=== PATIENT | female | born 1985 | race African-American/Black ===

== ENCOUNTER 2018-07-22 13:02 | Inpatient (IN) ==
[2018-07-22] MEDS ORDERED: Acetaminophen 325 MG Tablet PO PRN (16:52)
[2018-07-22] MEDS ORDERED: Aluminum/Magnesium/Simethacone Susp 30 ML UDC PO PRN (16:52)
[2018-07-23 08:22] LABS: Anion Gap 4 meq/L (5-15); Blood Urea Nitrogen 9 mg/dL (7-18); Calcium 8.6 mg/dL (8.5-10.1); Carbon Dioxide 28.6 meq/L (21.0-32.0); Chloride 109 meq/L (98-107); Cholesterol 160 mg/dL (120-200); Glomerular Filtration Rate Greater Than 89 mL/min (>89); Glucose,Random 95 mg/dL (74-106); Potassium 4.3 meq/L (3.5-5.1); Sodium 142 meq/L (136-145); Triglycerides 56 mg/dL (42-150)
[2018-07-23 08:23] LABS: Chol/HDL Ratio 3.54 Ratio; HDL Cholesterol 45.1 mg/dL (40.0-60.0); LDL Cholesterol,Calculated 104 mg/dL (0-99)
[2018-07-23] MEDS ORDERED: Melatonin 5 MG Tablet PO PRN (11:33)
[2018-07-23] MEDS ORDERED: Benztropine Inj 2 MG/2 ML Ampul IM PRN (11:33)
[2018-07-23] MEDS ORDERED: LORazepam 1 MG Tablet PO PRN (11:33)
--- NOTE | 2018-07-23 11:41 | P.HPPSY ---
Provisional Diagnosis Admission Date: July 22, 2018 15:40 Mckean I.: 1. Major depressive disorder, recurrent, severe with psychotic features 2. Urine toxicology positive for THC, rule out cannabis use disorder Mckean II.: Deferred Competence Certification of Person's Competence To Provide Express and Informed Consent I have personally examined Jessica Zafar, a person being served at [facility] on, July 23, 2018 1125. Express and informed consent means consent voluntarily given in writing, by a competent person, after sufficient explanation and disclosure of the subject matter involved to enable the person to make a knowing and willful decision without any element of force, fraud, deceit, duress, or other form of constraint or coercion. This person is 18 years of age or older, is not now known to be incompetent to consent to treatment with a guardian advocate, and does not have a health care surrogate or proxy currently making medical treatment decisions. I have found this person to be one of the following: [X] Competent to provide express and informed consent, as defined above, for voluntary admission to this facility and is competent to provide express and informed consent for treatment. He/she has the consistent capacity to make well reasoned, willful, and knowing decisions concerning his or her medical or mental health treatment. The person fully and consistently understands the purpose of the admission for examination/placement and is fully capable of personally exercising all rights assured under [place] [] Incompetent to provide express and informed consent to voluntary admission, and this is incompetent to provide express and informed consent to treatment. The person must be transferred to involuntary status and a petition for a guardian advocate filed with the Circuit Court. [] Refusing to provide express and informed consent to voluntary admission but is competent to provide express and informed consent for treatment. The person must be discharged or transferred to involuntary status. Form shall be completed within 24 hours of a person's arrival at the receiving facility and filed in the clinical record of each person: 1. Admitted on a voluntary basis 2. Permitted to provide express and informed consent to his/her own treatment 3. Allowed to transfer from involuntary to voluntary status 4. Prior to permitting a person to consent to his or her own treatment after having been previously found incompetent to consent to treatment. History of Present Illness Capacity: Has capacity Chief Complaint: Depression History of Present Illness: Ms. Zafar is a 32-year-old female with a reported history of depression who presents in transfer from [facility] under a Mcelroy act. Documentation from outside hospital reviewed. According to ED provider notes, patient was found roaming the streets and walked into a doctor's office. She was brought into the ED by EMS. She told the psychiatric screener at outside hospital that she overdosed on Tylenol PM, although Tylenol level was negative x2. Reviewing our electronic medical record, I see no previous psychiatric contact within our system. Patient seen and examined with nurse. Chart reviewed. Case discussed with nursing staff. On my examination today, the patient presents as fairly dysphoric and withdrawn. She relates that she has had a history of depression for 4 years and was hospitalized at a facility in [place] in December of this year , although she does not report having been given any medications at that time. She says that she took a bus down on Friday from [facility] in hopes of settling with her father in [facility]. However, she lost her cell phone and now has no means of contacting father. Patient reports that she has been feeling depressed for about the last 2 weeks because she believes that her family has been distancing themselves from her, although she admits that there is no concrete evidence that this is so. In addition to low mood, the patient reports poor sleep and poor appetite with 25 pound weight loss from baseline weight, although she is not sure over what period this has occurred as she has not weighed herself recently. She does endorse some hopeless feelings and feelings of fatigue but no concentration deficit. She says that after arriving in [place] she had a conversation with her boyfriend Nitin over the phone in which Nitin said that he wanted to separate and it was at this point that patient began to experience SI. She remembers going to a gas station on her way from the bus terminal in [place] and purchasing a bottle of Tylenol PM. She then remembers taking 2-3 handfuls of the Tylenol wanting "to just knock out." She has no recollection following the ingestion and next remembers awakening at outside hospital. She denies ongoing suicidal ideation but admits to some passive thoughts of . I can elicit no current or prior hypomanic/ manic symptoms. She denies any audiovisual hallucinations. I do suspect that patient's belief that family is distancing themselves from her may have a delusional quality, and the patient reports that during her previous depressive episode in December she conceived of the belief that her cousins were plotting against her when they were not. The remainder of the psychiatric ROS is negative. Patient has no acute physical complaints. Past psychiatric history: The patient reports a history of depression. She is not presently under the care of a psychiatrist. She reports that her only previous psychiatric admission was the one in December of this year. She denies any history of previous suicide attempts. She denies any previous medication trials. Family history: The patient reports that 2 of her maternal uncles have depression, and 1 of them has attempted suicide in the past. Her maternal uncle also struggles with substance use issues, as does her father. Chemical dependency history: Patient tells me that she smokes a half a pack a day of cigarettes. She denies any other substance use. She can provide no explanation for the urine toxicology findings of THC. Social history: The patient is from [facility]. She is homeless in [place]. She had been hoping to stay with her father, but as noted above she has no way of contacting him. She previously worked as a [employer] in [facility]. She denies any history. Denies any legal history. Denies any access to guns or firearms. Denies any synagogue or spiritual believes. Denies any history of abuse or mistreatment. Past medical history: Patient denies any medical issues. Medications: Patient reports that she takes no home medications. Allergies: No known allergies. - Inpatient Certification I certify that the inpatient services were ordered in accordance with Medicare regulations governing the order. This includes certification that hospital inpatient services are reasonable and necessary and in the case of services not specified as inpatient-only under 42 CFR 419.22(n), that they are appropriately provided as inpatient services in accordance to with the 2-midnight benchmark under 43 CFR 412.3(e) I certify that inpatient psychiatric hospital services are medically necessary. Evaluation and treatment and/or diagnostic testing are expected to improve the patient's condition. The patient needs on a daily basis, active treatment furnished directly by or requiring the supervision of inpatient psychiatric facility personnel. Estimated Total Length of Stay (Days): 9 (7-9) Plans for Post Hospital Care: Not yet determined Review of Systems All other systems reviewed negative except as stated in HPI PMFSH - History History Provided By: Patient - Tobacco History Second Hand Smoke Exposure: No Tobacco Use In Past 30 Days: Yes Smoking Status: Current every day smoker Tobacco Type: Cigarettes - Alcohol History How Often Do You Have a Drink Containing Alcohol: Monthly or less - Substance Use History Substance History: Past History - Substance Use Type Marijuana Status: Sustained Remission Route Used: Inhalation Reason for Use: Feels Good Quality Measures - Psychiatric History Psychological trauma history: See above. - Patient Strengths Patient's strengths (minimum of 2): In a monitored setting. Verbally fluent. Medications and Allergies Active Medications: Active Medications Acetaminophen (Tylenol) 650 mg PO Q4H PRN PRN Reason: Pain 1-5 or Temp >101F Al Hydrox/Mg Hydrox/Simethicone (Mag-Al Plus Susp Liq) 30 ml PO Q6H PRN PRN Reason: DYSPEPSIA Al Hydroxide/Mg Hydroxide (Milk Of Magnesia Liq) 30 ml PO Q12H PRN PRN Reason: Mild Constipation Diphenhydramine HCl (Benadryl) 50 mg PO HS PRN PRN Reason: INSOMNIA Diphenhydramine HCl (Benadryl Inj) 50 mg IM HS PRN PRN Reason: INSOMNIA Hydroxyzine HCl (Atarax) 50 mg PO Q6H PRN PRN Reason: ANXIETY Nicotine (Habitrol 21 Mg Patch.24 Hr) 1 patch T-DERMAL DAILY [facility] Last Admin: 07/23/18 09:45 Dose: 1 patch Patch Removal (Remove Old Patch) 1 each T-DERMAL DAILY [facility] Allergies Allergy/AdvReac Type Severity Reaction Status Date / Time No Known Allergies Allergy Verified 07/22/18 16:01 Results - Labs CBC & Chem 7: 07/23/18 07:24 Labs: Laboratory Results - last 24 hr 07/23/18 07:24 Sodium 142 Potassium 4.3 Chloride 109 H Carbon Dioxide 28.6 Anion Gap 4 L BUN 9 Creatinine 0.81 Estimated GFR Greater than 89 Random Glucose 95 Calcium 8.6 Triglycerides 56 Cholesterol 160 LDL Cholesterol, Calc 104 H HDL Cholesterol 45.1 Cholesterol/HDL Ratio 3.54 Labs from outside hospital reviewed: CBC reveals mild leukocytosis, Hgb and plt ok. BMP wnl. LFTs wnl. TSH wnl, FT4 slightly elevated at 1.69. CPK 288, MB fraction wnl. EtOH undetectable bHCG neg UA 2+ blood, 2+ ketones, 7 WBC. No nitrites or LE. APAP level neg x 2 UTox +THC Head CT read as no acute process EKG sinus rhythm QTc 431ms, not prolonged. Exam Vital signs: Vital Signs 07/22/18 15:54 07/23/18 06:09 Temperature 98 F 98.3 F Pulse Rate 71 82 Respiratory Rate 18 18 Blood Pressure 115/73 104/69 Pulse Oximetry 99 98 Intake & Output 07/22/18 07/23/18 07/23/18 18:59 06:59 18:59 Weight 55 kg Other: Weight On Admission 55 kg Narrative: Physical examination was completed by ED provider at outside hospital. On my examination today, the patient appears to be in no acute physical distress. No motor abnormalities noted. No signs of intoxication or withdrawal noted. Labs and vital signs reviewed. Mental Status Examination Appearance: Appropriate Consciousness: Alert Orientation: Person, Place, Date/Time (Approximate, at least) Motor Activity: Normal gait Speech: Slow Language: Adequate Fund of Knowledge: Adequate Attention and Concentration: Adequate Memory: Unremarkable (Besides gap in memory following overdose, grossly intact on clinical exam) Mood: Other (Depressed) Affect: Blunt Thought Process & Associations: Other (Intact but somewhat slowed) Thought Content: Delusional Hallucination Type: Other (Denies AVH but does appear a little internally preoccupied) Delusion Type: Other (suspected ego syntonic depressive delusions) Suicidal Ideation: No (but endorses passive thoughts of ) Suicidal Plan: No Suicidal Intention: No Homicidal Ideation: No Insight: Fair Judgment: Impulsive Assessment and Plan - Assessment (1) Major depressive disorder, recurrent, severe with psychotic features Code(s): F33.3 - Major depressive disorder, recurrent, severe with psychotic symptoms Status: Acute - Plan Plan: 32-year-old female with psychiatric history as detailed above who presents in transfer from outside hospital under a Mcelroy act. On my examination today, the patient reports depressive symptomatology for 2 weeks culminating in a suicide attempt following breakup with boyfriend after arriving in [place] from [facility]. Patient reports a history of what sounds like psychotic depression with onset of paranoid delusions regarding cousins in the setting of depressive episode in December of this year. I suspect that patient's belief that family is distancing themselves from her may likewise be delusional, in part she can provide no evidence for why she holds this belief. Thus, I suspect a recurrent episode of psychotic depression. Patient requires psychiatric hospitalization at this time for safety, observation and stabilization. Admit inpatient. Voluntary status; conditions of voluntary status reviewed with patient. For depression, initiate Lexapro 10mg daily. For psychotic features in setting of depression, start Zyprexa 5mg qHS; it is hoped that this agent will also help with poor sleep and poor appetite. Ativan as needed for anxiety. E-FORCSE report reviewed. Melatonin as needed for sleep. R/B/A for meds reviewed with patient, including metabolic and motor side effects of antipsychotics. We also discuss ECT as a potential treatment option for psychotic depression. Check CBC to follow up leukocytosis. Check LFTs to follow-up reported APAP OD (although magnitude of overdose is called into question by negative APAP levels at outside hospital). [facility] to obtain records from hospitalization in [facility]. Vitals every shift. Counselor to see and endeavor to obtain collateral information. Disposition planning. Estimated length of stay: 7-9 days. Justification for Continued Inpatient Stay: See above Discharge Planning: Pending psychiatric stabilization. Request Healthcare Surrogate/Guardian Advocate?: No
[2018-07-23] MEDS: Escitalopram 10 MG Tablet PO SCH (12:17)
[2018-07-23 15:37] LABS: Albumin 3.6 g/dL (3.4-5.0)
[2018-07-23 15:38] LABS: Hemoglobin A1c 4.9 % (4.3-6.0)
[2018-07-23 15:39] LABS: Total Protein 7.2 g/dL (6.4-8.2)
[2018-07-23 20:13] LABS: Baso % (Auto) 0.3 % (0.0-2.0); Eos # (Auto) 0.1 th/mm3 (0.0-0.4); Eos % (Auto) 0.6 % (0.0-4.0); Hemoglobin 13.8 gm/dL (11.6-15.3); Lymph # (Auto) 2.3 th/mm3 (1.0-4.8); Lymph % (Auto) 26.3 % (9.0-44.0); Mean Corpuscular HGB Conc 33.6 % (32.0-36.0); Mean Corpuscular Hemoglobin 31.7 pg (27.0-34.0); Mean Corpuscular Volume 94.5 fL (80.0-100.0); Mean Platelet Volume 8.3 fL (7.0-11.0); Mono # (Auto) 0.6 th/mm3 (0.0-0.9); Neut # (Auto) 5.7 th/mm3 (1.8-7.7); Neut % (Auto) 65.8 % (16.0-70.0); Platelet Count 287 th/mm3 (150-450); Red Blood Count 4.34 mil/mm3 (4.00-5.30); Red Cell Distribution Width 12.5 % (11.6-17.2); White Blood Count 8.6 th/mm3 (4.0-11.0)
[2018-07-24] MEDS: Escitalopram 10 MG Tablet PO SCH (08:15)
--- NOTE | 2018-07-24 10:44 | P.PNPSY ---
Subjective Chief Complaint: Depression Remarks: Patient seen and examined with counselor. Chart reviewed. Case discussed with nursing staff who reports patient has been quiet and medication compliant. Case discussed in treatment team. On my examination today, the patient describes her mood as "okay." She remains a little bit withdrawn and affect is still somewhat dysphoric. She denies any suicidal or homicidal ideation. She denies any audiovisual hallucinations. She complains of some mild dizziness from medications. We will check orthostatic vital signs, and I have educated patient regarding safe standing. No other medication side effects. No physical complaints. Vital Signs Temp Pulse Resp BP Pulse Ox 07/24/18 06:17 97.5 F L 90 16 116/64 99 07/23/18 17:42 99.2 F 81 17 118/70 98 Laboratory Results - last 24 hr 07/23/18 07/23/18 07/23/18 07:24 07:24 07:24 WBC RBC Hgb Hct MCV MCH MCHC RDW Plt Count MPV Neut % (Auto) Lymph % (Auto) [place] % (Auto) Eos % (Auto) Baso % (Auto) Neut # (Auto) Lymph # (Auto) [place] # (Auto) Eos # (Auto) Baso # (Auto) WBC Differential Differential Comment Hemoglobin A1c 4.9 Total Bilirubin Cancelled 0.3 Direct Bilirubin Cancelled 0.1 Indirect Bilirubin Cancelled 0.2 AST Cancelled 18 ALT Cancelled 23 Alkaline Phosphatase Cancelled 94 Total Creatine Kinase 94 Total Protein Cancelled 7.2 Albumin Cancelled 3.6 07/23/18 19:30 WBC 8.6 RBC 4.34 Hgb 13.8 Hct 41.0 MCV 94.5 MCH 31.7 MCHC 33.6 RDW 12.5 Plt Count 287 MPV 8.3 Neut % (Auto) 65.8 Lymph % (Auto) 26.3 [place] % (Auto) 7.0 Eos % (Auto) 0.6 Baso % (Auto) 0.3 Neut # (Auto) 5.7 Lymph # (Auto) 2.3 [place] # (Auto) 0.6 Eos # (Auto) 0.1 Baso # (Auto) 0.0 WBC Differential . Differential Comment Auto diff final Hemoglobin A1c Total Bilirubin Direct Bilirubin Indirect Bilirubin AST ALT Alkaline Phosphatase Total Creatine Kinase Total Protein Albumin Labs reviewed. CBC unremarkable. LFTs unremarkable. Review of Systems All other systems reviewed negative except as stated in HPI Mental Status Examination Appearance: Appropriate Consciousness: Alert Orientation: Person, Place (At least) Motor Activity: Normal gait, Other (No hand tremor, no dystonia, no dyskinesia noted. No other motor abnormalities noted.) Speech: Slow Language: Adequate Fund of Knowledge: Adequate Attention and Concentration: Adequate Memory: Unremarkable (Besides gap in memory following overdose, grossly intact on clinical exam) Mood: Other ("Okay") Affect: Other (Somewhat dysphoric) Thought Process & Associations: Other (A little bit slowed) Thought Content: Appropriate Hallucination Type: Other (Denies AVH but does appear a little internally preoccupied) Delusion Type: None, Other (suspected ego syntonic depressive delusions) Suicidal Ideation: No (No passive thoughts of today) Homicidal Ideation: No Insight: Fair Judgment: Impulsive Assessment and Plan - Assessment (1) Major depressive disorder, recurrent, severe with psychotic features Code(s): F33.3 - Major depressive disorder, recurrent, severe with psychotic symptoms Status: Acute - Plan Plan: And Zyprexa as ordered. Check orthostatic vital signs. Continue Lexapro as ordered. Records have been requested from hospitalization in [facility] but have not yet been received; follow-up on these. Continue to monitor on inpatient unit. Counselor to endeavor to obtain collateral information. Continue other medications and care as ordered. Justification for Continued Inpatient Stay: Risk for decompensation in less restrictive environment. Discharge Planning: Pending psychiatric stabilization. Request Healthcare Surrogate/Guardian Advocate?: No
--- NOTE | 2018-07-24 14:56 | P.TTN ---
- Patient Problems Problems: 1. Discharge planning 2. Medication compliance 3. Knowledge deficit 4. Lack of coping skills - Progress Toward Goals Provider Present: Dr. Román Rodgers Provider Input: Still meets criteria Psychiatric Counselors Present: Vishnu Sandoval Jr., [facility], Britt Madsen, [facility] Group Spec/RT/OT/CHARLES Present: Annia Mims, [employer], Ej Pleitez, OT Group Spec/RT/OT/CHARLES Input: Pt isolates to her room. Pt is quiet and pleasant. - Documentation Teaching Recipient: Patient
[2018-07-25] MEDS: Escitalopram 10 MG Tablet PO SCH (09:14)
--- NOTE | 2018-07-25 17:15 | P.PNPSY ---
Subjective Chief Complaint: Depression Remarks: Reviewed electronic medical records and discussed case with staff. Follow-up was conducted in the [place] with AALIYAH Grant present. She reports patient's been very quiet but somewhat vague. She has been compliant with her medications and reports no behavioral disturbances today. Patient states that she is okay, slept well, and has a good appetite. She does admit to being a little tired. She denies any suicidal ideation or thoughts of self-harm. She states that yesterday she was sad appetite and reports that she feels better today. Mental Status Examination Appearance: Appropriate Consciousness: Alert Orientation: Person, Place (At least) Motor Activity: Normal gait, Other (No hand tremor, no dystonia, no dyskinesia noted. No other motor abnormalities noted.) Speech: Slow Language: Adequate Fund of Knowledge: Adequate Attention and Concentration: Adequate Memory: Unremarkable (Besides gap in memory following overdose, grossly intact on clinical exam) Mood: Other ("Okay") Affect: Other (Somewhat dysphoric) Thought Process & Associations: Other (A little bit slowed) Thought Content: Appropriate Hallucination Type: Other (Denies AVH but does appear a little internally preoccupied) Delusion Type: None, Other (suspected ego syntonic depressive delusions) Suicidal Ideation: No (No passive thoughts of today) Suicidal Plan: No Suicidal Intention: No Homicidal Ideation: No Insight: Fair Judgment: Impulsive Assessment and Plan - Assessment (1) Major depressive disorder, recurrent, severe with psychotic features Code(s): F33.3 - Major depressive disorder, recurrent, severe with psychotic symptoms Status: Acute - Plan Plan: Patient will be reevaluated by the attending psychiatrist. Continue with current treatment plan. Justification for Continued Inpatient Stay: Moving this patient to a less restrictive environment would likely result in decompensation. Request Healthcare Surrogate/Guardian Advocate?: No
[2018-07-26] MEDS: Escitalopram 10 MG Tablet PO SCH (08:22)
--- NOTE | 2018-07-26 14:19 | P.PNPSY ---
Subjective Chief Complaint: Depression Remarks: Reviewed electronic record and discussed with nursing staff. Rounded with AALIYAH Dyson. Patient is in bed. She states that she is tired. Nursing reports that she has been trying to keep the Lexapro in her mouth and had to ensure that she swallowed the pill. Patient is very quiet and vague about any concerns. Denies SI/HI. Does endorse that she feels depressed. Review of Systems All other systems reviewed negative except as stated in HPI Mental Status Examination Appearance: Appropriate Consciousness: Alert Orientation: Person, Place (At least) Motor Activity: Normal gait, Other (No hand tremor, no dystonia, no dyskinesia noted. No other motor abnormalities noted.) Speech: Slow Language: Adequate Fund of Knowledge: Adequate Attention and Concentration: Adequate Memory: Unremarkable (Besides gap in memory following overdose, grossly intact on clinical exam) Mood: Other ("Okay") Affect: Other (Somewhat dysphoric) Thought Process & Associations: Other (A little bit slowed) Thought Content: Appropriate Hallucination Type: Other (Denies AVH but does appear a little internally preoccupied) Delusion Type: None, Other (suspected ego syntonic depressive delusions) Suicidal Ideation: No (No passive thoughts of today) Suicidal Plan: No Suicidal Intention: No Homicidal Ideation: No Homicidal Plan: No Homicidal Intention: No Insight: Fair Judgment: Impulsive Assessment and Plan - Assessment (1) Major depressive disorder, recurrent, severe with psychotic features Code(s): F33.3 - Major depressive disorder, recurrent, severe with psychotic symptoms Status: Acute - Plan Plan: Patient will be reevaluated by the attending psychiatrist. Continue with current treatment plan. Justification for Continued Inpatient Stay: Moving patient to a less restrictive environment may result in her decompensation. Request Healthcare Surrogate/Guardian Advocate?: No
[2018-07-26] MEDS ORDERED: OLANZapine 10 MG Tablet PO SCH (21:00)
[2018-07-27] MEDS: Escitalopram 10 MG Tablet PO SCH (08:33)
--- NOTE | 2018-07-27 09:46 | P.PNPSY ---
Subjective Chief Complaint: Depression Remarks: Patient seen and examined with nurse. Chart reviewed. No records received from [facility]. Case discussed with nursing staff who reports patient has been quiet and isolative with a somewhat odd affect. She reportedly complained of auditory hallucinations and suicidal ideation yesterday. On my examination today, the patient continues to complain of auditory hallucinations, reportedly many voices occurring inside her head intermittently. These voices are "uncomfortable" and occasionally say negative things. No reported command auditory hallucinations to hurt herself or others. She denies suicidal ideation recently but says "I do not want to be here." Ongoing depression and poor sleep reported. Patient feels that current psychotropics are making her worse and asks for a hiatus from all scheduled psychotropics. No physical complaints. Vital Signs Temp Pulse Resp BP Pulse Ox 07/27/18 05:47 98.2 F 65 16 120/76 97 07/26/18 17:56 97.6 F 95 H 17 128/86 98 Intake and Output 07/27/18 07/27/18 07/27/18 06:59 14:59 22:59 Other: Weight 54.4 kg Labs reviewed. No new labs. Review of Systems All other systems reviewed negative except as stated in HPI Mental Status Examination Appearance: Appropriate Consciousness: Alert Orientation: Person, Place (At least) Motor Activity: Normal gait, Other (No motor abnormalities noted) Speech: Slow Language: Adequate Fund of Knowledge: Adequate Attention and Concentration: Adequate Memory: Unremarkable (Besides gap in memory following overdose, grossly intact on clinical exam) Mood: Other (Depressed) Affect: Blunt Thought Process & Associations: Intact Thought Content: Hallucinations Hallucination Type: Auditory Delusion Type: None Suicidal Ideation: No (Some passive thoughts of ) Suicidal Plan: No Suicidal Intention: No Homicidal Ideation: No Homicidal Plan: No Homicidal Intention: No Insight: Fair Judgment: Impulsive Assessment and Plan - Assessment (1) Major depressive disorder, recurrent, severe with psychotic features Code(s): F33.3 - Major depressive disorder, recurrent, severe with psychotic symptoms Status: Acute - Plan Plan: Inadequate response to current therapy. Patient requesting hiatus from scheduled psychotropics and attributes hallucinations and recent SI to psychotropics. I have cautioned patient that discontinuing psychotropics may cause worsening of symptoms which these agents are meant to treat (e.g. depression and psychosis) and may also cause undesirable side effects such as rebound insomnia. Patient persists in requesting a period off of all psychotropics but is agreeable to resuming different psychotropic agents should her psychiatric condition worsen or fail to improve. Discontinue Zyprexa and Lexapro. We will reassess psychotropic medication regimen tomorrow, Friday. Continue to monitor on the inpatient unit. Continue other medications and care as ordered. Justification for Continued Inpatient Stay: Impairment in reality construction. Risk for decompensation and less restrictive environment. Discharge Planning: Pending psychiatric stabilization. Request Healthcare Surrogate/Guardian Advocate?: No
--- NOTE | 2018-07-28 11:31 | P.PNPSY ---
Subjective Chief Complaint: Depression Remarks: Patient seen and examined with nurse. Chart reviewed. We have not yet received records from Hospital in [facility]. Case discussed with nursing staff. No behavioral issues noted overnight. Case discussed in treatment team. On my examination today, the patient is calm and cooperative with evaluation. She denies any suicidal ideation, intent or plan. She denies any hallucinations. Affect remains somewhat blunted. She is on no scheduled psychotropic medications. She does not wish to initiate any psychotropic medications today. No physical complaints. Hopeful for discharge soon. Vital Signs Temp Pulse Resp BP Pulse Ox 07/28/18 05:55 98.9 F 79 18 122/72 97 07/27/18 15:57 98.1 F 99 H 18 130/86 98 Labs reviewed. No new labs. Review of Systems All other systems reviewed negative except as stated in HPI Mental Status Examination Appearance: Appropriate Consciousness: Alert Orientation: x4 Motor Activity: Normal gait, Other (No abnormal motor movements noted) Speech: Unremarkable Language: Adequate Fund of Knowledge: Adequate Attention and Concentration: Adequate Memory: Unremarkable (Besides gap in memory following overdose, grossly intact on clinical exam) Mood: Appropriate Affect: Blunt Thought Process & Associations: Intact, Logical, Linear Thought Content: Appropriate Hallucination Type: None Delusion Type: None Suicidal Ideation: No Suicidal Plan: No Suicidal Intention: No Homicidal Ideation: No Mental Status Exam Remarks: Insight and judgment are fair. Assessment and Plan - Assessment (1) Major depressive disorder, recurrent, severe with psychotic features Code(s): F33.3 - Major depressive disorder, recurrent, severe with psychotic symptoms Status: Acute - Plan Plan: As noted above, patient does not wish to start new psychotropic medications at this point. I am concerned that if we do not initiate psychotropic medications , patient will revert to psychiatric condition prior to admission. I have discussed these concerns with patient and encouraged her to consider resuming a different agent. Transfer to 2600 unit as there has been no evidence of behavioral disturbance and patient is denying SI. Continue other medications and care as ordered. Justification for Continued Inpatient Stay: Risk for decompensation in less restrictive setting Discharge Planning: Pending further observation Request Healthcare Surrogate/Guardian Advocate?: No
[2018-07-29 05:44] VITALS: BP 128/64; PULSE 74; RESP 15; TEMP 98.4; O2SAT 98
--- NOTE | 2018-07-29 10:43 | P.DSPSY ---
Psychiatry Discharge Summary Inpatient Psychiatric care?: Yes Advance Directives: No Mental Health Advance Directive: No Health Care Proxy: No - Admission Admission Date: July 22, 2018 15:40 - Admission Diagnosis (1) Major depressive disorder, recurrent, severe with psychotic features Code(s): F33.3 - Major depressive disorder, recurrent, severe with psychotic symptoms Brief History: Ms. Zafar is a 32-year-old female with a reported history of depression who presents in transfer from [facility] under a [place] act. Documentation from outside hospital reviewed. According to ED provider notes, patient was found roaming the streets and walked into a doctor's office. She was brought into the ED by EMS. She told the psychiatric screener at outside hospital that she overdosed on Tylenol PM, although Tylenol level was negative x2. Reviewing our electronic medical record, I see no previous psychiatric contact within our system. Patient seen and examined with nurse. Chart reviewed. Case discussed with nursing staff. On my examination today, the patient presents as fairly dysphoric and withdrawn. She relates that she has had a history of depression for 4 years and was hospitalized at a facility in [place] in December of this year , although she does not report having been given any medications at that time. She says that she took a bus down on Friday from [facility] in hopes of settling with her father in [place]. However, she lost her cell phone and now has no means of contacting father. Patient reports that she has been feeling depressed for about the last 2 weeks because she believes that her family has been distancing themselves from her, although she admits that there is no concrete evidence that this is so. In addition to low mood, the patient reports poor sleep and poor appetite with 25 pound weight loss from baseline weight, although she is not sure over what period this has occurred as she has not weighed herself recently. She does endorse some hopeless feelings and feelings of fatigue but no concentration deficit. She says that after arriving in [place] she had a conversation with her boyfriend Nitin over the phone in which Nitin said that he wanted to separate and it was at this point that patient began to experience SI. She remembers going to a gas station on her way from the bus terminal in [place] and purchasing a bottle of Tylenol PM. She then remembers taking 2-3 handfuls of the Tylenol wanting "to just knock out." She has no recollection following the ingestion and next remembers awakening at outside hospital. She denies ongoing suicidal ideation but admits to some passive thoughts of . I can elicit no current or prior hypomanic/ manic symptoms. She denies any audiovisual hallucinations. I do suspect that patient's belief that family is distancing themselves from her may have a delusional quality, and the patient reports that during her previous depressive episode in December she conceived of the belief that her cousins were plotting against her when they were not. The remainder of the psychiatric ROS is negative. Patient has no acute physical complaints. Tobacco Use In Past 30 Days: Yes How Often Do You Have a Drink Containing Alcohol: Monthly or less Hospital Course: Patient was admitted to a locked, inpatient psychiatric unit. Appropriate precautions were in place throughout patient's hospital stay. Patient was seen and examined on the unit by psychiatry and also visited by counselor. Psychotropic medications were adjusted, but patient felt that psychotropic medications were worsening her condition and requested that these be discontinued. There was no evidence of any suicidality or homicidality on the inpatient unit. There was no evidence of self-care deficit. Patient presented no behavioral problem and was transferred uneventfully from the high acuity unit to the lower acuity unit and tolerated the milieu of the lower acuity unit well. On the day of discharge: Patient seen and examined with nurse. Chart reviewed. Case discussed with nursing staff. No behavioral issues noted overnight. Patient noted to be in good spirits. Case discussed with counselor. On my examination today, the patient is requesting discharge from the inpatient psychiatric unit today. She denies any suicidal or homicidal ideation, intent or plan. She rates her mood as improved versus admission, and I can elicit no severe depressive or hypomanic/manic symptoms. She denies any audiovisual hallucinations and in particular denies any command auditory hallucinations to hurt self or others. I can elicit no delusional material at this time. She remains resistant to resumption of any psychotropic agent. I have cautioned the patient that continuing off of psychotropic agents may lead to recrudescence of depressive symptoms, possibly requiring rehospitalization. Patient understands these risks but prefers to go without psychotropic medications at this time and is capacitated to make this decision. She has no physical complaints. Weighing the acute, chronic, and protective factors and based on the available evidence, I internet designer that the patient does not meet criteria for involuntary psychiatric hospitalization at this time. There is no evidence of imminent risk of harm to self or others, nor is there evidence of self-care deficit to substantiate involuntary psychiatric hospitalization. The patient is requesting discharge from the inpatient psychiatric unit today, and I have no basis to retain her over her objection. Patient will be discharged today with psychiatric follow-up as arranged by the counselor. Patient is also to follow- up with primary care. I have counseled the patient regarding warning signs for need to return to the psychiatric emergency room as part of a general safety plan. - Discharge Discharge Date: 07/29/18 - Discharge Diagnosis (1) Major depressive disorder, recurrent, in partial remission Diagnosis: Principal (No evidence of ongoing psychosis) Code(s): F33.41 - Major depressive disorder, recurrent, in partial remission Status: Acute Discharge Disposition: Home - Discharge Instructions Discharge Diet: Regular Diet Activities You Can Perform: Weight Bearing As Tolerat - Discharge Time <= 30 minutes Mental Status Examination Appearance: Appropriate Consciousness: Alert Orientation: x4 Motor Activity: Normal gait, Other (No motoric abnormalities noted) Speech: Unremarkable Language: Adequate Fund of Knowledge: Adequate Attention and Concentration: Adequate Memory: Unremarkable (Grossly intact on clinical exam) Mood: Appropriate Affect: Appropriate Thought Process & Associations: Intact, Logical, Goal directed, Linear Thought Content: Appropriate Hallucination Type: None Delusion Type: None Suicidal Ideation: No Suicidal Plan: No Suicidal Intention: No Homicidal Ideation: No Homicidal Plan: No Homicidal Intention: No Mental Status Exam Remarks: Insight and judgment seem fair Discharge/Advance Care Plan - Results Vital Signs: Last Vital Signs Temp 98.4 F 07/29/18 05:43 Pulse 74 07/29/18 05:43 Resp 15 07/29/18 05:43 BP 128/64 07/29/18 05:43 Pulse Ox 98 07/29/18 05:43 Lab Results: Laboratory Results Hemoglobin A1c 4.9 % (4.3-6.0) 07/23/18 07:24 Triglycerides 56 mg/dL (42-150) 07/23/18 07:24 Cholesterol 160 mg/dL (120-200) 07/23/18 07:24 LDL Cholesterol, Calc 104 mg/dL (0-99) H 11/15/18 07:24 HDL Cholesterol 45.1 mg/dL (40.0-60.0) 07/23/18 07:24 Summary of Procedures: None done Pending Results: None - Medications Number of antipsychotic medications at discharge: 0 - Discharge Care Plan Goals to Promote Your Health: * To prevent worsening of your condition and complications * To maintain your health at the optimal level Directions to Meet Your Goals: Take your medications as prescribed Follow your dietary instruction Follow activity as directed Keep your appointments as scheduled Take your immunizations and boosters as scheduled If your symptoms worsen call your PCP, if no PCP go to Urgent Care Center or Emergency Room For 31/03 questions related to your inpatient stay or results of tests pending at discharge, please contact Dr. Yuriy Rodgers MD at Smoking is Dangerous to Your Health. Avoid second hand smoking
== END 2018-07-29 13:45 | disposition home or self-care (01) ==
LOC: H270 15:47 → H260 07-28 11:54
PROVIDERS: ADMIT Psychiatry & Neurology Psychiatry; ATTEND Psychiatry & Neurology Psychiatry